=== PATIENT | male | born 1990 | race Asian ===

== ENCOUNTER 2017-06-03 13:12 | Emergency (ER) | payer OTHER ==
[~2017-06-03] VITALS: Ht 175.3 cm; Wt 60.2 kg
[2017-06-03] MEDS ORDERED: ZOFRAN4 MG PO (14:50)
[2017-06-03 15:22] VITALS: BP 114/84
== END 2017-06-03 15:23 | disposition home or self-care (01) ==
LOC: EME 13:12
DX: J02.9 Acute pharyngitis, unspecified (principal); R11.2 Nausea with vomiting, unspecified
CPT/HCPCS: 87651 90; 99281; 99284